=== PATIENT | female | born 1980 | race Caucasian/White ===

== ENCOUNTER 2016-12-07 09:30 | Emergency (ER) | payer OTHER ==
[2016-12-07 11:06] LABS: HEMOGLOBIN 8.8 gm/dl (12.3-15.3); RED BLOOD COUNT 4.16 M/UL (4.00-5.10); WHITE BLOOD COUNT 10.7 K/UL (4.5-11.0)
[2016-12-07 11:09] LABS: BUN/CREATININE RATIO 13 (0-10)
== END 2016-12-07 17:25 | disposition home or self-care (01) ==
LOC: ER1 09:30
PROVIDERS: Family Medicine
DX: O99.89 Other specified diseases and conditions complicating pregnancy, childbirth and the puerperium (principal); R11.2 Nausea with vomiting, unspecified; O99.012 Anemia complicating pregnancy, second trimester; Z3A.20 20 weeks gestation of pregnancy; Z79.82 Long term (current) use of aspirin
CPT/HCPCS: 36415; 76805; 80053; 81001; 83690; 85025; 96361; 96374; 99284; J2405; J7030